=== PATIENT | male | born 1960 | race Hispanic/Latino ===

== ENCOUNTER 2019-09-22 23:58 | Emergency (ER) | payer SELFPAY ==
[~2019-09-22] VITALS: Ht 167.6 cm; Wt 117.9 kg
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
[2019-09-23] MEDS ORDERED: LIDOCAINE 1% W/EPINEPHRINE 20 ML VIAL INJ ONE (03:00)
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
[2019-09-23] MEDS ORDERED: HYDROCODONE/APAP 10MG-325MG TAB PO ONE ×2 (05:15→05:30)
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
[2019-09-23] MEDS ORDERED: BACITRACIN ZINC 0.9GM TP ONE (05:30)
== END 2019-09-23 06:40 | disposition home or self-care (01) ==
LOC: ER 09-23 00:19
DX: S01.01XA Laceration without foreign body of scalp, initial encounter (principal); S16.1XXA Strain of muscle, fascia and tendon at neck level, initial encounter; S29.012A Strain of muscle and tendon of back wall of thorax, initial encounter; S39.012A Strain of muscle, fascia and tendon of lower back, initial encounter; V58.0XXA Driver of pick-up truck or van injured in noncollision transport accident in nontraffic accident, initial encounter; Y92.488 Other paved roadways as the place of occurrence of the external cause
CPT/HCPCS: 70450; 72125; 72128; 72131; 99284